=== PATIENT | male | born 1945 | race Two or more races ===

== ENCOUNTER 2023-09-16 17:20 | Inpatient (IN) | payer MEDICARE, OTHER ==
[~2023-09-16] VITALS: Ht 160 cm; Wt 45.8 kg
[2023-09-16 18:32] LABS: BASOPHILS % (AUTO) 0.2 % (0.0-2.0); EOSINOPHILS % (AUTO) 0.2 % (0.0-7.0); HEMATOCRIT 33.5 % (36.7-47.1); HEMOGLOBIN 11.3 g/dL (12.5-16.3); LYMPHOCYTES # (AUTO) 0.6 K/uL (0.8-4.8); LYMPHOCYTES % (AUTO) 7.1 % (20.5-51.5); MEAN CORPUSCULAR HGB CONC 34 g/dL (32.5-36.3); MEAN CORPUSCULAR VOLUME 88.7 fL (73.0-96.2); MONOCYTES # (AUTO) 0.6 K/uL (0.1-1.30); MONOCYTES % (AUTO) 6.3 % (0.0-11.0); NEUTROPHILS # (AUTO) 7.7 K/uL (1.8-8.9); NEUTROPHILS % (AUTO) 86.2 % (38.5-71.5); PLATELET COUNT (AUTO) 218 K/uL (152-348); RED BLOOD CELL COUNT(AUTO) 3.78 MIL/uL (4.06-5.63); RED CELL DISTRIBUTION WIDTH 14.3 % (12.1-16.2); WHITE BLOOD COUNT (AUTO) 8.9 K/uL (3.6-10.2)
[2023-09-16 18:41] LABS: DIFFERENTIAL COMMENT 1
[2023-09-16 18:43] LABS: CARBON DIOXIDE 29 mmol/L (21-32); CHLORIDE 99 mmol/L (98-107); CREATININE 2.2 mg/dL (0.6-1.3); GLUCOSE 107 mg/dL (74-106); POTASSIUM 4.3 mmol/L (3.5-5.1); SODIUM SERUM 138 mmol/L (136-145); UREA NITROGEN, BLOOD 47 mg/dL (7-18)
[2023-09-16 18:48] LABS: ALANINE AMINOTRANSFERASE 12 U/L (16-63); ALBUMIN 3.9 g/dL (3.4-5.0); ALKALINE PHOSPHATASE 91 U/L (50-136); ASPARTATE AMINOTRANSFERASE 6 U/L (15-37); BILIRUBIN,DIRECT 0.1 mg/dL (0.0-0.2); BILIRUBIN,TOTAL 0.5 mg/dL (0.2-1.0); TOTAL PROTEIN, SERUM 7.5 g/dL (6.4-8.2)
[2023-09-16 18:52] LABS: ETHANOL < 3 MG/DL (0-10)
[2023-09-16 18:53] LABS: ACETAMINOPHEN < 2.0 ug/mL (10-30)
[2023-09-16] MEDS ORDERED: ONDA-104 PO (19:04)
[2023-09-16] MEDS ORDERED: HYOS-15 PO (19:04)
[2023-09-16] MEDS ORDERED: METAMUCIL PO (19:04)
[2023-09-16] MEDS ORDERED: ALBU2.5V38 IH (19:04)
[2023-09-16] MEDS ORDERED: MORPHINE SULFATE PO (19:04)
[2023-09-16] MEDS ORDERED: BISA10SU61 RC (19:04)
[2023-09-16] MEDS ORDERED: AMLO-212 PO (19:04)
[2023-09-16] MEDS ORDERED: SENN1TAB59 PO (19:04)
[2023-09-16] MEDS ORDERED: LORA0.5T48 PO (19:04)
[2023-09-16] MEDS ORDERED: LORA10CA PO (19:04)
[2023-09-16] MEDS ORDERED: TRAM50TA2 PO (19:04)
[2023-09-16] MEDS ORDERED: ACET650S13 RC (19:04)
[2023-09-16] MEDS ORDERED: MAGNESIUM HYDROXIDE 30 ML LIQUID UDC PO PRN (22:15)
[2023-09-16] MEDS ORDERED: MAG HYDROX/AL HYDROX/SIMETH 30 ML LIQUID UDC PO PRN (22:15)
[2023-09-16] MEDS ORDERED: LORAZEPAM 1 MG TABLET PO PRN (22:15)
[2023-09-16] MEDS ORDERED: ZOLPIDEM 5 MG TABLET PO PRN (22:15)
[2023-09-16] MEDS ORDERED: diphenhydrAMINE 25 MG/10 ML UDC NG PRN (22:30)
[2023-09-16 22:34] VITALS: BP 123/66; TEMP 97.8; O2SAT 93
[2023-09-16] MEDS ORDERED: diphenhydrAMINE 25 MG/10 ML UDC PO PRN (22:45)
[2023-09-16] MEDS: BLOOD SUGAR DIAGNOSTIC 1 EACH STRIP VI ONE (22:54)
[2023-09-17 07:52] VITALS: BP 142/77; TEMP 97.8; O2SAT 96
[2023-09-17] MEDS ORDERED: ACETAMINOPHEN 650 MG SUPP.RECT RC PRN (09:30)
[2023-09-17] MEDS ORDERED: ALBUTEROL SULFATE 2.5 MG/3 ML NEBU IH PRN (09:30)
[2023-09-17] MEDS ORDERED: HYOSCYAMINE SULFATE 0.125 MG PO SCH (09:30)
[2023-09-17] MEDS: DIVALPROEX SPRINKLE 125 MG CAP.SPRINK PO SCH (09:31)
[2023-09-17] MEDS: ESCITALOPRAM OXALATE 10 MG TABLET PO SCH (09:32)
[2023-09-17] MEDS ORDERED: MORPHINE PO (09:37)
[2023-09-17] MEDS ORDERED: SENN8.6T19 PO (09:42)
[2023-09-17] MEDS: MEMANTINE HCL 5 MG TABLET PO SCH (10:01)
[2023-09-17] MEDS: SENNOSIDES 1 TABLET PO SCH (10:01)
[2023-09-17] MEDS: LORATADINE 10 MG TABLET PO SCH (10:01)
[2023-09-17] MEDS: TRAMADOL HCL 50 MG TABLET PO SCH (14:00)
[2023-09-17 15:15] VITALS: BP 139/74; TEMP 98; O2SAT 94
[2023-09-17 20:00] VITALS: BP 148/82; TEMP 98; O2SAT 94
[2023-09-17] MEDS: DONEPEZIL 5 MG TABLET PO SCH (20:20)
[2023-09-17] MEDS: TRAMADOL HCL 50 MG TABLET PO PRN (20:26)
[2023-09-17] MEDS ORDERED: SENNOSIDES/DOCUSATE SODIUM TABLET PO SCH (21:00)
[2023-09-18 03:47] LABS: *BILIRUBIN,URIN NEGATIVE (NEGATIVE); *BLOOD, URINE NEGATIVE (NEGATIVE); *CLARITY,URINE CLEAR (CLEAR); *COLOR,URINE YELLOW (YELLOW); *KETONES,URINE NEGATIVE (NEGATIVE); *PROTEIN,URINE 2+ (NEGATIVE); *UROBILINOGEN,URINE 0.2 E.U./dl (NORMAL); LEUKOCYTE ESTERASE ,URINE NEGATIVE (NEGATIVE); NITRITE, URINE NEGATIVE (NEGATIVE); UGLUCOSE TRACE (NEGATIVE)
[2023-09-18 04:42] LABS: *CREATININE,URINE 92.2 mg/dL (30-125); *URINE TOTAL PROTEIN RANDOM 73.5 mg/dL (<150/24HR)
[2023-09-18 04:45] LABS: *AMPHETAMINE, URINE NEGATIVE (NEGATIVE); *BARBITURATE, URINE NEGATIVE (NEGATIVE); *BENZODIAZEPINE, URINE NEGATIVE (NEGATIVE); *CANNABINOID, URINE NEGATIVE (NEGATIVE); *COCCAINE, URINE NEGATIVE (NEGATIVE); *OPIATE, URINE NEGATIVE (NEGATIVE); *PHENCYCLIDINE SCREEN,URINE NEGATIVE (NEGATIVE)
[2023-09-18 04:51] LABS: FENTANYL, URINE NEGATIVE (NEGATIVE)
[2023-09-18 06:57] LABS: BASOPHILS % (AUTO) 0.5 % (0.0-2.0); EOSINOPHILS # (AUTO) 0.1 K/uL (0.0-0.7); EOSINOPHILS % (AUTO) 1.1 % (0.0-7.0); HEMATOCRIT 35.4 % (36.7-47.1); LYMPHOCYTES # (AUTO) 0.9 K/uL (0.8-4.8); LYMPHOCYTES % (AUTO) 17.6 % (20.5-51.5); MEAN CORPUSCULAR HEMOGLOBIN 30.1 uug (23.8-33.4); MEAN CORPUSCULAR HGB CONC 34 g/dL (32.5-36.3); MEAN CORPUSCULAR VOLUME 88.9 fL (73.0-96.2); MONOCYTES # (AUTO) 0.3 K/uL (0.1-1.30); MONOCYTES % (AUTO) 5.8 % (0.0-11.0); NEUTROPHILS # (AUTO) 3.8 K/uL (1.8-8.9); PLATELET COUNT (AUTO) 217 K/uL (152-348); RED BLOOD CELL COUNT(AUTO) 3.98 MIL/uL (4.06-5.63); RED CELL DISTRIBUTION WIDTH 13.7 % (12.1-16.2)
[2023-09-18 07:18] LABS: DIFFERENTIAL COMMENT 1
[2023-09-18 07:25] LABS: ALBUMIN 3.4 g/dL (3.4-5.0); BILIRUBIN,TOTAL 0.6 mg/dL (0.2-1.0); CALCIUM 9.3 mg/dL (8.5-10.1); CREATININE 1.1 mg/dL (0.6-1.3); MAGNESIUM 2.1 mg/dL (1.8-2.4); PHOSPHOROUS 2.3 mg/dL (2.5-4.9); POTASSIUM 4.1 mmol/L (3.5-5.1); TOTAL PROTEIN, SERUM 7.1 g/dL (6.4-8.2)
[2023-09-18 08:03] VITALS: BP 150/80; TEMP 98.2; O2SAT 94
[2023-09-18] MEDS: AMLODIPINE 5 MG TABLET PO SCH (09:01)
[2023-09-18 15:27] VITALS: BP_SYST 133; BP_SYST 98; BP_DIAS 69; BP_DIAS 73; TEMP 98; O2SAT 96; O2SAT 99
[2023-09-18] MEDS: NEUTRA PHOS PACKET PO ONE (16:03)
[2023-09-18 20:00] VITALS: BP 145/80; TEMP 97.9; O2SAT 95
[2023-09-19 07:56] VITALS: BP 158/88; TEMP 98; O2SAT 96
[2023-09-19 09:09] LABS: PTH, INTACT 27 pg/mL (15-65)
[2023-09-19 10:12] LABS: A/G RATIO 1.2 (0.7-1.7); ALBUMIN 3.4 g/dL (2.9-4.4); ALPHA-1-GLOBULIN 0.2 g/dL (0.0-0.4); ALPHA-2-GLOBULIN 0.8 g/dL (0.4-1.0); BETA GLOBULIN 0.9 g/dL (0.7-1.3); GLOBULIN, TOTAL 2.8 g/dL (2.2-3.9); M-SPIKE Not Observed g/dL (Not Observed)
[2023-09-19 16:07] VITALS: BP 144/83; TEMP 98; O2SAT 96
[2023-09-19 20:00] VITALS: BP 146/91; TEMP 97.9; O2SAT 96
[2023-09-19] MEDS: ACETAMINOPHEN 325 MG TABLET PO PRN (20:09)
[2023-09-20] MEDS: HYOSCYAMINE SULFATE 0.125 MG TABLET PO PRN (04:19)
[2023-09-20 08:00] VITALS: BP 158/85; TEMP 98.2; O2SAT 97
[2023-09-20 12:45] VITALS: BP 141/75
[2023-09-20 16:34] VITALS: BP 155/83; TEMP 98; O2SAT 97
[2023-09-20 17:00] VITALS: BP 144/78
[2023-09-20 20:10] VITALS: BP 150/81; TEMP 98.2; O2SAT 90
[2023-09-21 08:50] VITALS: BP 157/85; TEMP 98.2; O2SAT 97
[2023-09-21 16:12] VITALS: BP 156/87; TEMP 98.1; O2SAT 97
[2023-09-21 19:47] VITALS: BP 150/82; TEMP 97.9; O2SAT 96
[2023-09-22 08:00] VITALS: BP 138/92; TEMP 97.6; O2SAT 94
[2023-09-22 16:00] VITALS: BP 154/85; TEMP 98.1; O2SAT 93
[2023-09-22 19:54] VITALS: BP 138/82; TEMP 98.1; O2SAT 94
[2023-09-23 07:30] VITALS: BP 156/88; TEMP 98; O2SAT 96
[2023-09-23] MEDS: ESCITALOPRAM OXALATE 10 MG TABLET PO SCH (09:03)
[2023-09-23] MEDS: AMLODIPINE 10 MG TABLET PO SCH (09:04)
[2023-09-23 15:15] VITALS: BP 126/77; TEMP 98; O2SAT 96
[2023-09-23 19:54] VITALS: BP 146/82; TEMP 98.1; O2SAT 99
[2023-09-24 08:16] VITALS: BP 161/85; TEMP 98.2; O2SAT 98
[2023-09-24 16:13] VITALS: BP 108/74; TEMP 98; O2SAT 94
[2023-09-24 20:00] VITALS: BP 131/73; TEMP 98.1; O2SAT 96
[2023-09-25] MEDS: MEMANTINE HCL 10 MG TABLET PO SCH (09:07)
[2023-09-25 09:32] VITALS: BP 140/87; TEMP 97.8; O2SAT 48
[2023-09-25 15:37] VITALS: BP 159/87; TEMP 98; O2SAT 96
[2023-09-25 20:00] VITALS: BP 129/80; TEMP 98; O2SAT 93
[2023-09-26 07:30] VITALS: BP 143/95; TEMP 98.2; O2SAT 93
[2023-09-26 15:58] VITALS: BP 120/75; TEMP 98; O2SAT 98
[2023-09-26 20:00] VITALS: BP 113/59; TEMP 98; O2SAT 96
[2023-09-27 07:56] VITALS: BP 120/66; TEMP 97.8; O2SAT 97
[2023-09-27 17:02] VITALS: BP 122/69; TEMP 97.9; O2SAT 97
[2023-09-27 20:00] VITALS: BP 100/60; TEMP 97.8; O2SAT 95
[2023-09-28 08:48] VITALS: BP 146/72; TEMP 97.8; O2SAT 96
[2023-09-28 15:55] VITALS: BP 142/74; TEMP 97.9; O2SAT 96
[2023-09-28 20:00] VITALS: BP 111/64; TEMP 97.9; O2SAT 97
[2023-09-29 08:16] VITALS: BP 153/77; TEMP 97.9; O2SAT 96
[2023-09-29 08:29] VITALS: BP 153/77
== END 2023-09-29 10:30 | DRG 885 ==
LOC: ER 17:26 → GPS 21:10
PROVIDERS: ADMIT Psychiatry & Neurology Psychiatry; ATTEND Nurse Practitioner Acute Care
DX: F31.9 Bipolar disorder, unspecified (principal); N18.9 Chronic kidney disease, unspecified; N17.0 Acute kidney failure with tubular necrosis; F03.911 Unspecified dementia, unspecified severity, with agitation; F03.92 Unspecified dementia, unspecified severity, with psychotic disturbance; F03.94 Unspecified dementia, unspecified severity, with anxiety; I12.9 Hypertensive chronic kidney disease with stage 1 through stage 4 chronic kidney disease, or unspecified chronic kidney disease; Z88.6 Allergy status to analgesic agent; Z88.0 Allergy status to penicillin; E78.5 Hyperlipidemia, unspecified; M19.90 Unspecified osteoarthritis, unspecified site; R26.89 Other abnormalities of gait and mobility; K21.9 Gastro-esophageal reflux disease without esophagitis; R13.10 Dysphagia, unspecified; Z66 Do not resuscitate; Z79.899 Other long term (current) drug therapy
CPT/HCPCS: 36415; 76770; 83735; 83970; 84100; 84155; 84165; 84300; 85025; G0480